=== PATIENT | male | born 1935 | race Caucasian/White ===

== ENCOUNTER → 2025-01-21 | Outpatient (CLI) | payer MEDICARE, SELFPAY ==
--- NOTE | 2025-01-21 10:38 | XR_ITS ---
EXAMINATION: Cervical spine, 5 views Technique: Cervical spine AP, AP odontoid, lateral, bilateral obliques, 5 views Exam date and time: 01/21/2025, 10:40 a.m. INDICATION: Right neck pain radiating down the right shoulder for 10 days COMPARISON: Cervical spine radiographs 03/09/2006. CTA head and neck 05/28/2022 FINDINGS: No evidence for fracture, listhesis or prevertebral soft tissue swelling. There is generalized osteopenia as well as multilevel spondylosis including bilateral facet arthropathy and endplate spondylosis with osteophytes. Facet arthropathy is greater on the left side than the right most notably at the C3-C4 facet joint with sclerosis and osteophyte formation. There is severe complete disc space narrowing with endplate on endplate at C5-C6, and severe posterior predominant disc space narrowing at C4-C5 and C6-C7. Prominent endplate sclerosis and disc vacuum cleft phenomena are present at C6-7. High-grade neural foraminal stenosis is present on the left at C3-C4, and moderate grade left foraminal stenosis is present at C6-C7. No apparent high-grade right neural foraminal stenosis. Mild convex left curvature of the cervical thoracic spine identified. The visualized upper lung aguilar are clear and unremarkable. IMPRESSION: Multilevel cervical spondylosis and disc space narrowing are identified, moderate to severe in grade, grossly similar compared to the CTA of 05/28/2022, with left-sided neural foraminal stenoses. No fracture or listhesis detected.
== END | disposition home or self-care (01) ==
PROVIDERS: PCP Specialist; Referring Provider Specialist; Visit Provider Specialist
DX: M47.812 Spondylosis without myelopathy or radiculopathy, cervical region (principal); M48.02 Spinal stenosis, cervical region
CPT/HCPCS: 72050